=== PATIENT | female | born 1955 | race Caucasian/White ===

== ENCOUNTER 2020-09-26 11:05 | Outpatient (CLI) | payer MEDICARE, OTHER, SELFPAY ==
--- NOTE | ~2020-09-26 | US_ITS ---
EXAMINATION: US venous doppler LE RT DATE: 09/26/2020 12:03 INDICATION: Right lower limb swelling. TECHNIQUE: Grayscale ultrasound images without and with compression and Doppler ultrasound images of the right lower extremity veins were obtained. COMPARISON: None. FINDINGS: The visualized portions of right common femoral vein, profunda (deep) femoral vein, femoral vein, pop liteal vein, peroneal veins, posterior tibial veins, and greater saphenous vein outflow are patent. IMPRESSION: 1. No deep venous thrombosis. Reviewed, dictated and finalized at location A. DROMAT WORKER
== END 2020-09-26 11:06 | disposition home or self-care (01) ==
PROVIDERS: Visit Provider Orthopaedic Surgery
DX: R60.9 Edema, unspecified (principal); L53.9 Erythematous condition, unspecified
CPT/HCPCS: 93971

== ENCOUNTER 2020-10-25 13:56 | Outpatient (CLI) | payer MEDICARE, SELFPAY ==
[2020-10-25 14:36] LABS: Basophils Absolute Auto 0.1 K/mm3 (0.0-0.1); Basophils Percent Auto 0.9 % (0.2-1.2); Eosinophils Absolute Auto 0.1 K/mm3 (0-0.3); Eosinophils Percent Auto 1.3 % (0-4.4); Hematocrit 44.6 % (37.0-47.0); Hemoglobin 14.4 g/dL (12.0-15.0); Immature Granulocyte Absolute 0.01 K/mm3 (0.00-0.031); Immature Granulocyte Percent A 0.1 % (0-0.5); Lymphocytes Absolute Auto 1.62 K/mm3 (0.9-3.2); Lymphocytes Percent Auto 23.3 % (18.3-44.2); Mean Corpuscular HGB Conc 32.3 g/dl (32-36); Mean Corpuscular Hemoglobin 31.5 pg (26-34); Mean Corpuscular Volume 97.6 fl (80-100); Mean Platelet Volume 10.3 fl (7.4-10.4); Monocytes Absolute Auto 0.5 K/mm3 (0.1-0.6); Monocytes Percent Auto 6.5 % (2.6-8.5); Neutrophils Absolute Auto 4.7 K/mm3 (1.3-6.7); Neutrophils Percent Auto 67.9 % (45.5-73.1); Platelet Count Result 242 k/mm3 (150-375); Red Blood Count 4.57 M/mm3 (4.2-5.4); Red Cell Distribution Width 12.9 % (11.5-14.5)
[2020-10-25 14:57] LABS: Rheumatoid Factor < 8.6 IU/ML (<12)
[2020-10-25 14:58] LABS: CRP < 0.5 mg/dL (<1.0); Uric Acid 4.7 mg/dL (2.5-7.5)
[2020-10-25 15:03] LABS: Erythrocyte Sedimentation Rate 10 mm/hr (0-20)
== END 2020-10-25 13:57 | disposition home or self-care (01) ==
LOC: ANHLAB 13:59
PROVIDERS: PCP Family Medicine; Visit Provider Orthopaedic Surgery
DX: M17.0 Bilateral primary osteoarthritis of knee (principal); M06.9 Rheumatoid arthritis, unspecified; G89.29 Other chronic pain; M25.561 Pain in right knee
CPT/HCPCS: 36415; 84550; 85025; 85652; 86038; 86140; 86430

== ENCOUNTER 2020-11-01 10:38 | Outpatient (CLI) | payer MEDICARE, OTHER, SELFPAY ==
--- NOTE | ~2020-11-01 | MR_ITS ---
EXAMINATION: MR knee RT wo/w con DATE: 11/01/2020 11:59 INDICATION: Right knee pain. TECHNIQUE: Magnetic resonance imaging (MRI) of the right knee was performed without and with 13 mL Mu ltiHance intravenous contrast. Sequences included axial PD-weighted FS FSE, coronal PD-weighted FSE a nd PD-weighted FS FSE, sagittal PD-weighted FSE, sagittal T2-weighted FS FSE, axial T1-weighted FS FS E, and axial postcontrast T1-weighted FS FSE. COMPARISON: Right knee radiographs 09/26/2020 FINDINGS: Medial compartment: There is a complex tear of posterior horn and body of medial meniscus. There is cartilage surface irr egularity of tibial condyle and femoral condyle. There is mild subchondral edema-like marrow signal i ntensity in femoral condyle. Lateral compartment: There is a vertical tear of anterior horn of lateral meniscus. There is cartilage surface irregularit y of tibial condyle and femoral condyle. Patellofemoral compartment: There is deep partial thickness cartilage loss of patellar lateral facet with mild subchondral edema- like marrow signal intensity. There is cartilage surface irregularity of patellar medial facet. There is cartilage surface irregularity of trochlea. There is mild subchondral edema-like marrow signal in tensity and lateral trochlea. Ligaments and tendons: There is enlargement and increased signal in anterior cruciate ligament, consistent with mucoid degen eration. There are small intraosseous ganglia in distal femur and proximal tibia adjacent to anterior cruciate ligament. The posterior cruciate ligament is normal. Medial collateral ligament is normal. There are changes of prior sprain of fibular collateral ligament characterized by thickening and incr eased signal intensity proximally. Fluid: There is a moderate-sized knee joint effusion. There is mild superficial infrapatellar bursitis. IMPRESSION: 1. Moderate chondrosis of patellofemoral compartment and mild chondrosis of medial and lateral compar tments. 2. Tears of medial and lateral menisci. 3. Moderate-sized knee joint effusion. Reviewed, dictated and finalized at location A. 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 Moderate chondrosis of patellofemoral compartment and mild chondrosis of med ial and lateral compartments. 2. Tears of medial and lateral menisci. 3. Moderate-sized knee joint effusion.
[2020-11-01 11:24] LABS: Estimated Glomerular Filt Rate 56
== END 2020-11-01 10:39 | disposition home or self-care (01) ==
PROVIDERS: PCP Family Medicine; Visit Provider Orthopaedic Surgery
DX: M25.461 Effusion, right knee (principal); S83.281A Other tear of lateral meniscus, current injury, right knee, initial encounter; S83.241A Other tear of medial meniscus, current injury, right knee, initial encounter; X58.XXXA Exposure to other specified factors, initial encounter
CPT/HCPCS: 73723; A9577

== ENCOUNTER 2022-02-22 12:32 | Outpatient (CLI) | payer MEDICARE, SELFPAY ==
--- NOTE | ~2022-02-22 | XR_ITS ---
EXAMINATION: XR sacroiliac joints min 3V DATE: 02/22/2022 12:55 INDICATION: Unspecified osteoarthritis, unspecified site. TECHNIQUE: 3 views of the sacroiliac joints on 4 radiographs were obtained. COMPARISON: None. FINDINGS: Bone alignment is normal. No fracture. There is mild osteoarthritis of the sacroiliac joint s. No evidence of inflammatory arthropathy. IMPRESSION: 1. Mild osteoarthritis of the sacroiliac joints. Reviewed, dictated and finalized at location A.
--- NOTE | ~2022-02-22 | XR_ITS ---
EXAMINATION: XR hand BI arthritis min 3V DATE: 02/22/2022 12:55 INDICATION: Unspecified osteoarthritis, unspecified site. TECHNIQUE: 4 views of right hand and 4 views of left hand on 7 radiographs were obtained. COMPARISON: None. FINDINGS: RIGHT HAND: Bone alignment is normal. No fracture. There is mild osteoarthritis of fifth proximal int erphalangeal joint and second and third distal interphalangeal joints. LEFT HAND: Bone alignment is normal. No fracture. There is mild osteoarthritis of second-fourth dista l interphalangeal joints. IMPRESSION: 1. Mild polyarticular osteoarthritis. Reviewed, dictated and finalized at location A.
[2022-02-22 13:57] LABS: Hematocrit 44.9 % (37.0-47.0); Hemoglobin 14.5 g/dL (12.0-15.0); Mean Corpuscular HGB Conc 32.3 g/dl (32-36); Mean Corpuscular Hemoglobin 31.9 pg (26-34); Mean Corpuscular Volume 98.7 fl (80-100); Mean Platelet Volume 10.4 fl (7.4-10.4); Platelet Count Result 269 k/mm3 (150-375); Red Blood Count 4.55 M/mm3 (4.2-5.4); Red Cell Distribution Width 14.6 % (11.5-14.5)
[2022-02-22 14:05] LABS: Alanine Aminotransferase 20 U/L (4-35); Albumin Level 4.5 g/dL (3.5-5.1); Alkaline Phosphatase 101 U/L (38-126); Anion Gap 7 mmol/L (8-16); Aspartate Amino Transferase 35 U/L (14-36); Bilirubin,Total 0.7 mg/dL (0.2-1.3); Blood Urea Nitrogen 13 mg/dL (7-17); CRP < 0.5 mg/dL (<1.0); Calcium 9.1 mg/dL (8.4-10.2); Carbon Dioxide 30 mmol/L (22-30); Chloride 102 mmol/L (98-107); Estimated Glomerular Filt Rate > 60; Glucose 91 mg/dL (65-110); Potassium 3.9 mmol/L (3.4-5.0); Rheumatoid Factor < 8.6 IU/ML (<12); Sodium 139 mmol/L (137-145)
[2022-02-22 15:06] LABS: Erythrocyte Sedimentation Rate 11 mm/hr (0-20)
[2022-02-27 19:50] LABS: ANCA Screen Negative (Negative); Myeloperoxidase Ab <1.0 AI (<1.0); Proteinase-3 Ab <1.0 AI (<1.0); S cerevisiae Ab (IgA) 23.9 U (<=20.0); S cerevisiae Ab (IgG) 17.7 U (<=20.0)
[2022-02-28 19:34] LABS: Anti Cyclic Citrullinated Pept <16 Units (<20)
== END 2022-02-22 12:33 | disposition home or self-care (01) ==
PROVIDERS: PCP Internal Medicine; Visit Provider Internal Medicine
DX: M47.898 Other spondylosis, sacral and sacrococcygeal region (principal); M19.042 Primary osteoarthritis, left hand; M19.041 Primary osteoarthritis, right hand
CPT/HCPCS: 36415; 72202; 73130; 80053; 85027; 85652; 86036; 86038; 86140; 86200; 86430; 86671